=== PATIENT | male | born 1950 | race Caucasian/White ===

== ENCOUNTER 2016-11-17 11:50 | Day surgery (SDC) | payer MEDICARE, OTHER ==
[2016-11-17 12:04] VITALS: BP 131/63
[2016-11-17] MEDS ORDERED: TETRACAINE HCL 150 DROP BTL OP ONE (12:07)
== END 2016-11-17 11:51 | disposition home or self-care (01) ==
LOC: AMB 11:50
PROVIDERS: ATTEND Ophthalmology
PROC: 08933ZZ Drainage of Left Anterior Chamber, Percutaneous Approach (ICD-10-PCS; principal; 2016-11-17 13:05)
DX: H40.052 Ocular hypertension, left eye (principal)